=== PATIENT | male | born 1950 | race Two or more races ===

== ENCOUNTER 2017-10-14 13:37 | Inpatient (IN) | payer MEDICARE, OTHER ==
[~2017-10-14] VITALS: Ht 167.6 cm; Wt 87.1 kg
[2017-10-14] VITALS (12 sets, daily range): BP systolic 99–151; BP diastolic 68–98
[~2017-10-14 13:37] MED LIST: ADVAIR 100-501 EACH INH; AMLODIPINE-BEN1 EAC1 ORAL; CYMBALTA60 MG ORAL; DILTIAZEM 24HR180 MG PO; DULERA 200 MCG/13 GM IH; LIPITOR20 MG ORAL; LISINOPRIL20 MG ORAL; PLAVIX75 MG ORAL; SIMVASTATIN40 MG ORAL; SINGULAIR10 MG ORAL; SYMBICORT 1601 PUFFS INH; TRAMADOL HCL50 MG ORAL; UNOBMED; XARELTO10 MG ORAL
--- NOTE | 2017-10-14 14:15 | History & Physical ---
History and Physical History & Physicial Vital Signs -Extended Height: 66 inches Weight: 204 pounds Temperature: 98.6 degrees F ( oral) Pulse rate: 115 /min Pulse rhythm: irregular Respirations: 13 /min O2 Sat: 92% Blood Pressure: 112/68 mm Hg Calculations Body Mass Index: 33.05 Body Surface Area (m2): 2.02 History of Present Illness Hx. Source: patient Primary complaint: Patient is here for follow up and evaluation Duration: weeks Trend of sx: not im proved Fever: none Treatment: see med list Trend of Tx: same Additional HPI: 67 year old male patient presents today for follow up and xolair injection. The patient states he is severely swollen throughout his body. He was given Flomax by Dr. Whitten but notes some improvement. He is also complaining of severe shortness of breath, wheezing and coughing. He notes minimal improvement overall after taking the solumedrol IV at home. he notes worsening swelling overall in the legs. he notes palpitations. patient seen in the office and noted to have atrial flutter not rate controlled. no fevers at present Active Medications (reviewed today): TESSALON PERLES 100 MG ORAL CAPSULE (BENZONATATE) 1 by mouth 3 times a day as needed for cough ALBUTEROL SULFATE (2.5 MG/3ML) 0.083% INHALATION NEBULIZATION SOLUTION ( ALBUTEROL SULFATE) BID PROMETHAZINE-DM 6.25-15 MG/5ML ORAL SYRUP (PROMETHAZINE-DM) 15cc q6 PRN TYLENOL WITH CODEINE #3 300-30 MG ORAL TABLET (ACETAMINOPHEN-CODEINE) 1 PO Q6 hrs PRN VITAMIN D3 5000 UNIT ORAL CAPSULE (CHOLECALCIFEROL) Take one tablet daily EPIPEN 2-LUIS ENRIQUE 0.3 MG/0.3ML INJECTION SOLUTION AUTO-INJECTOR (EPINEPHRINE) 1 2 pack to carry 1 2pack for home 1 2 pack for school/work XOLAIR 150 MG SUBCUTANEOUS SOLUTION RECONSTITUTED (OMALIZUMAB) inject 300mg every 2 weeks LEVALBUTEROL HCL 0.63 MG/3ML INHALATION NEBULIZATION SOLUTION (LEVALBUTEROL HCL ) tid prn DILTIAZEM HCL ER COATED BEADS 180 MG ORAL CAPSULE EXTENDED RELEASE 24 HOUR ( DILTIAZEM HCL COATED BEADS) 1 tab po qd TRAMADOL HCL 50 MG ORAL TABLET (TRAMADOL HCL) 1 tab po qd DULOXETINE HCL 60 MG ORAL CAPSULE DELAYED RELEASE PARTICLES (DULOXETINE HCL) 1 cap po qd DULERA 200-5 MCG/ACT INHALATION AEROSOL (MOMETASONE FURO-FORMOTEROL FUM) 2 puffs bid VENTOLIN HFA 108 (90 Base) MCG/ACT INHALATION AEROSOL SOLUTION (ALBUTEROL SULFATE) inhale 2 puffs every 4 to 6 hours as needed ZITHROMAX 250 MG ORAL TABLET (AZITHROMYCIN) 2 by mouth now, then 1 by mouth every day times 4 additional days MEDROL 4 MG ORAL TABLET THERAPY PACK (METHYLPREDNISOLONE) use as directed Current Allergies (reviewed today): No known allergies No Known Drug Allergies Past History Past Medical History (reviewed - no changes required): Hypercholesterolemia Hypertension osteoarthritis asthma obstructive sleep apnea (not compliant- CPAP removed) abnormal CT scan 12/2015 ER due to Atrial fibrillation/flutter Surgical History (reviewed - no changes required): right palm surgery as a child vericose vein left leg 03.03.2016 vericose vein right leg bronchoscopy Right knee replacement 2017 Family History (reviewed - no changes required): Both parents , health history unknown sister- Hypertension, heart disease Social History (reviewed - no changes required): single; 3 children; lives with partner; was born in [place] Risk Factors: Smoked Tobacco Use: Current every day smoker Cigarettes: Yes -- 1-2 cigarettes a day pack(s) per day, Year started: 1968 Years smoked: 40 Caffeine use: <1 drinks per day Alcohol use: no Family History Risk Factors: Family History of [place] in females < 65 years old: yes Review of Systems Respiratory: SEE HPI Musculoskeletal: SEE HPI Physical Exam General Appearance: well nourished, well hydrated, no acute distress Respiratory Respiratory Effort: no intercostal retractions or use of accessory muscles Palpation: normal fremitus Auscultation: scattered wheeze with reduced air entry Cardiovascular Palpation: no thrill or palpable murmurs, no displacement of PMI Auscultation: S1, S2, no murmur, rub, or gallop tachy RR Peripheral Circulation: no cyanosis, clubbing, significant edema legs Musculoskeletal Gait and Station: able to ambulate uses crutch Problems Added: Edema (ICD-782.3) (EOS07-D08.9) Deep venous thrombophlebitis (ICD-453.40) (LXT01-D17.409) Cardiomyopathy (ICD-425.4) (PMC92-R71.9) Asthma (ICD-493.90) (QCE78-M98.909) Sleep apnea, obstructive (ICD-327.23) (IRN31-W52.33) Shortness of breath (ICD-786.05) (FXF02-F42.02) WHEEZING (ICD-786.07) (PWZ40-Z94.2) [Lab Results Review] Assessment Status of Existing Problems: Assessed Asthma as comment only - Assessed Sleep apnea, obstructive as comment only - Assessed Shortness of breath as comment only - Assessed WHEEZING as comment only - New Problems: Dx of Cardiomyopathy (ICD-425.4) EF 40% Onset: 10/14/2017 Dx of Deep venous thrombophlebitis (ICD-453.40) ruleD out Onset: 10/14/2017 Dx of Edema (ICD-782.3) Onset: days Plan Additional Plan Comments: ADMIT ECHO AND VENOUS US NOTABLE FOR REDUCED EF OF 45% EVALUATE FOR CHF, CARDIOMYOPATHY AND DVT OBTAIN CXR WOULD NEED LASIX DIURESIS AND CARDIAC EVALUATION RATE CONTROL REBA LOPEZ Oct 14, 2017 14:15
[2017-10-14] MEDS ORDERED: Milk of Magnesia 30ml Ud ORAL PRN (16:00)
[2017-10-14] MEDS ORDERED: Albuterol ud Inhalation HHN PRN (16:00)
[2017-10-14] MEDS ORDERED: Zolpidem 5mg tab ORAL PRN (16:00)
[2017-10-14 17:34] LABS: HEMATOCRIT 50.9 % (42.0-52.0); HEMOGLOBIN 16.6 G/DL (14.2-18.0); MEAN CORPUSCULAR VOLUME 94 FL (80-99); PLATELET COUNT 190 K/UL (150-450); RED BLOOD COUNT 5.39 M/UL (4.70-6.10); RED CELL DISTRIBUTION WIDTH 14.5 % (11.6-14.8); WHITE BLOOD COUNT 18.2 K/UL (4.8-10.8)
[2017-10-14 17:44] LABS: ANION GAP 2 mmol/L (5-15); BLOOD UREA NITROGEN 23 mg/dL (7-18); CALCIUM 8.3 MG/DL (8.5-10.1); CARBON DIOXIDE 38 MMOL/L (21-32); CHLORIDE 100 MMOL/L (98-107); POTASSIUM 3.4 MMOL/L (3.5-5.1); SODIUM 140 MMOL/L (136-145)
[2017-10-14] MEDS ORDERED: Amiodarone 900 MG in D5W 500ml 482 ML IV SCH (20:00)
[2017-10-14] MEDS: Advair 250/50 Inhaler - 14 dose INH SCH (20:09)
[2017-10-14] MEDS ORDERED: Heparin 5000 units/ml inj IV ONE (21:00)
[2017-10-14] MEDS ORDERED: Amiodarone 200mg tab ORAL SCH (21:00)
[2017-10-14] MEDS ORDERED: Heparin 5000 units/ml inj SUBQ SCH (21:00)
[2017-10-14 21:24] LABS: HEMATOCRIT 52.2 % (42.0-52.0); HEMOGLOBIN 17.2 G/DL (14.2-18.0); MEAN CORPUSCULAR VOLUME 94 FL (80-99); PLATELET COUNT 210 K/UL (150-450); RED BLOOD COUNT 5.57 M/UL (4.70-6.10); RED CELL DISTRIBUTION WIDTH 14.3 % (11.6-14.8); WHITE BLOOD COUNT 18.7 K/UL (4.8-10.8)
[2017-10-14 21:37] LABS: INR 1.1 (0.9-1.1)
[2017-10-14] MEDS ORDERED: Heparin 25,000u/D5W 500ml 500 ML IV SCH (22:00)
[2017-10-14] MEDS: Solu-MEDROL 125mg Inj IVP SCH (22:14)
[2017-10-15] VITALS (48 sets, daily range): BP systolic 75–167; BP diastolic 41–108
--- NOTE | 2017-10-15 02:00 | Consultation ---
DATE OF CONSULTATION: 10/14/2017 This is being done as coverage for Dr. West. CONSULTING PHYSICIAN: Priscilla Horn M.D. REQUESTING PHYSICIAN: Devang Larson M.D. REASON FOR CONSULT: Atrial fibrillation with rapid ventricular rates. HISTORY OF PRESENT ILLNESS: History is obtained from the old chart, treating providers, and through a lopper as the patient is Malay speaking. The patient is a 67-year-old man with a history of COPD, hypertension, and paroxysmal atrial fibrillation. He reported intermittent palpitations for about one month, a nonproductive cough, and progressively worsening dyspnea over about two weeks. He also noted peripheral edema. He presented to Dr. Larson's office where he was noted to be in atrial fibrillation with rapid ventricular rate. He was transferred to the emergency room and is admitted for further treatment. His previous history is significant for hospitalization in 2015. At that time, his past history is significant for hospitalization in December 2015. At that time, he was admitted with atrial fibrillation with rapid ventricular rates. His rhythm converted spontaneously after he received intravenous Cardizem. He had an echo at that time showing normal left ventricular systolic function. Stress nuclear showed a fixed apical perfusion defect and an ejection fraction of 37% by (question accuracy in the setting of atrial fibrillation). PAST MEDICAL HISTORY: As noted above, history of COPD/asthma, also history of osteoarthritis, obstructive sleep apnea, hyperlipidemia, and hypertension. PAST SURGICAL HISTORY: Status post right knee replacement in 2016. MEDICATIONS: Cymbalta 60 mg daily, diltiazem 180 mg daily (scheduled to be started on 10/15/2017), subcutaneous heparin 5000 units every 12 hours, Solu-Medrol 60 mg IV q.12 h., Protonix 40 mg p.o. q.12 h., amiodarone infusion, Lasix 20 mg IV b.i.d., Tylenol p.r.n., Ambien p.r.n., and albuterol p.r.n.. ALLERGIES: No known drug allergies. SOCIAL HISTORY: The patient has a history of tobacco use, previous heavy use, currently a few cigarettes per day. Alcohol, none. Drugs, none. PHYSICAL EXAMINATION: VITAL SIGNS: Blood pressure is 124/98, pulse 135 and irregular, respirations 26, afebrile. GENERAL: Alert, well-developed, male, in no acute distress. HEENT: Normocephalic and atraumatic. Pupils are equal, round, and reactive to light. Sclerae anicteric. Oral mucosa are moist. NECK: Supple. There is no jugular venous distention. LUNGS: Decreased breath sounds bilaterally. No rales or wheezes. HEART: Tachycardic. Irregular. S1 and S2 with distant heart sounds. No murmurs or S3. ABDOMEN: Soft, nontender. No palpable mass. EXTREMITIES: A 1+ pedal and ankle edema bilaterally. SKIN: No rashes or lesions. NEUROLOGIC: No gross focal motor deficits. LABORATORY AND DIAGNOSTIC DATA: Hemoglobin 16.6, white blood count 02715, and platelets 190,000. Potassium 3.4, BUN 23, and creatinine 1.0. Natriuretic peptide 2403. Troponin less than 0.3. Toxicology screen negative. EKG shows atrial fibrillation with ventricular rate of 131 beats per minute, axis 0 degrees, no ST-segment changes, and nonspecific T-wave changes. Chest x-ray shows left lung volume loss and basilar atelectasis. ASSESSMENT AND RECOMMENDATIONS: The patient is a 67-year-old man with a history of hypertension, chronic obstructive pulmonary disease, current tobacco use, and paroxysmal atrial fibrillation, also possible coronary artery disease (given the results of previous stress nuclear study.) He is admitted now with a history of increasing shortness of breath and peripheral edema and recent onset of atrial fibrillation with rapid ventricular rate. He has been started on amiodarone. Given his Chads-Vasc score of 2, we would start intravenous anticoagulation with heparin of 2. I would recommend anticoagulation for stroke prevention. We will start Cardizem for rate control and continue amiodarone. We will obtain echo and venous duplex studies. We will check serial troponin levels and EKGs to rule out acute coronary syndrome, though clinical history does not strongly suggest this diagnosis. Further recommendations will be made based on the patient's clinical course and results of above testing. Priscilla Malone M.D. DR: Niko JOB#: [id number] CC:
[2017-10-15 05:40] LABS: HEMATOCRIT 51.6 % (42.0-52.0); HEMOGLOBIN 17.3 G/DL (14.2-18.0); MEAN CORPUSCULAR VOLUME 95 FL (80-99); PLATELET COUNT 202 K/UL (150-450); RED CELL DISTRIBUTION WIDTH 14.9 % (11.6-14.8); WHITE BLOOD COUNT 16.9 K/UL (4.8-10.8)
[2017-10-15 05:45] LABS: ANION GAP 2 mmol/L (5-15); BLOOD UREA NITROGEN 23 mg/dL (7-18); CALCIUM 8.4 MG/DL (8.5-10.1); CARBON DIOXIDE 38 MMOL/L (21-32); CHLORIDE 98 MMOL/L (98-107); CREATININE 1.2 MG/DL (0.55-1.30); POTASSIUM 3.8 MMOL/L (3.5-5.1); SODIUM 138 MMOL/L (136-145)
[2017-10-15] MEDS: Heparin 25,000u/D5W 500ml 500 ML IV SCH ×3 (06:46→16:23)
[2017-10-15] MEDS ORDERED: Heparin 5000 units/ml inj IV ONE (07:00)
[2017-10-15] MEDS: DULoxetine 30mg cap ORAL SCH (08:26)
[2017-10-15] MEDS: Solu-MEDROL 125mg Inj IVP SCH ×2 (08:26→20:45)
--- NOTE | 2017-10-15 08:46 | Critical Care Progress Note ---
Assessment/Plan Assessment/Plan atrial fibrillation with RVR pulmonary edema Asthma respiratory distress hypoxemia leg edema PLAN amio drip cardizem respiratory care IV steroids oxygen medications/laboratory data/nursing notes/ICU care reviewed in detail note reviewed and edited care discussed with RN and RT ICU time spent 38 minutes Critical Care - Subjective Interval Events: transferred to ICU rapid afib and fluid overload shortness of breath oxygen ROS Limited/Unobtainable: Yes Condition: critical EKG Rhythm: Atrial Fibrillation I&O: Intake and Output 10/14/17 10/15/17 19:00 07:00 Intake Total 590.895 ml Output Total 1600 ml Balance -1009.105 ml Intake Oral 310 ml IV Total 280.895 ml Output Urine Total 1600 ml Critical Care - Objective Last 24 Hour Vital Signs Date Time Temp Pulse Resp B/P (MAP) Pulse Ox O2 Delivery O2 Flow Rate FiO2 10/15/17 08:00 98.2 123 18 92/80 95 Nasal Cannula 2.0 98.2 10/15/17 07:30 120 16 107/64 94 Nasal Cannula 2.0 10/15/17 07:00 90 16 155/75 96 Nasal Cannula 2.0 10/15/17 06:30 122 16 117/86 96 Nasal Cannula 2.0 10/15/17 06:00 117 16 101/86 96 Nasal Cannula 2.0 10/15/17 05:30 112 25 132/76 97 Nasal Cannula 2.0 10/15/17 05:00 113 25 132/76 97 Nasal Cannula 2.0 10/15/17 04:30 125 27 154/87 95 Nasal Cannula 2.0 10/15/17 04:00 98.0 118 27 163/85 96 Nasal Cannula 2.0 98.0 10/15/17 04:00 98 10/15/17 03:30 110 32 167/106 96 Nasal Cannula 2.0 10/15/17 03:00 107 25 137/89 95 Nasal Cannula 2.0 10/15/17 02:30 115 36 151/108 96 Nasal Cannula 2.0 10/15/17 02:00 93 36 139/87 96 Nasal Cannula 2.0 10/15/17 01:30 118 36 125/107 96 Nasal Cannula 2.0 10/15/17 01:00 119 24 144/93 96 Nasal Cannula 2.0 10/15/17 00:30 98.3 107 19 158/67 98 Nasal Cannula 2.0 98.3 10/15/17 00:00 140 19 167/98 98 Nasal Cannula 2.0 10/15/17 00:00 126 10/14/17 23:30 135 19 137/75 98 Nasal Cannula 2.0 10/14/17 23:00 135 19 137/75 98 Nasal Cannula 2.0 10/14/17 22:30 138 19 117/88 98 Nasal Cannula 2.0 10/14/17 22:13 156 100/86 10/14/17 22:00 151 20 99/86 96 Nasal Cannula 2.0 10/14/17 21:30 137 22 118/82 97 Nasal Cannula 2.0 10/14/17 21:00 142 24 142/95 96 Nasal Cannula 2.0 10/14/17 20:30 139 23 126/88 97 Nasal Cannula 2.0 10/14/17 20:00 133 10/14/17 20:00 136 24 126/68 96 Nasal Cannula 2.0 10/14/17 19:30 97 Nasal Cannula 2.0 10/14/17 19:30 Nasal Cannula 2.0 10/14/17 19:30 134 26 126/77 97 Nasal Cannula 2.0 10/14/17 19:00 98.2 132 26 151/80 97 Nasal Cannula 2.0 98.2 10/14/17 18:30 98.2 135 26 124/98 97 98.2 10/14/17 16:00 136 10/14/17 16:00 97.8 120 18 125/85 93 Nasal Cannula 2.0 97.8 Labs: Labs Test 10/14/17 17:00 10/14/17 21:10 10/14/17 23:25 10/15/17 04:25 White Blood Count 18.2 K/UL (4.8-10.8) 18.7 K/UL (4.8-10.8) 16.9 K/UL (4.8-10.8) Red Blood Count 5.39 M/UL (4.70-6.10) 5.57 M/UL (4.70-6.10) 5.40 M/UL (4.70-6.10) Hemoglobin 16.6 G/DL (14.2-18.0) 17.2 G/DL (14.2-18.0) 17.3 G/DL (14.2-18.0) Hematocrit 50.9 % (42.0-52.0) 52.2 % (42.0-52.0) 51.6 % (42.0-52.0) Mean Corpuscular Volume 94 FL (80-99) 94 FL (80-99) 95 FL (80-99) Mean Corpuscular Hemoglobin 30.8 PG (27.0-31.0) 30.9 PG (27.0-31.0) 32.0 PG (27.0-31.0) Mean Corpuscular Hemoglobin Concent 32.6 G/DL (32.0-36.0) 33.0 G/DL (32.0-36.0) 33.6 G/DL (32.0-36.0) Red Cell Distribution Width 14.5 % (11.6-14.8) 14.3 % (11.6-14.8) 14.9 % (11.6-14.8) Platelet Count 190 K/UL (150-450) 210 K/UL (150-450) 202 K/UL (150-450) Mean Platelet Volume 8.3 FL (6.5-10.1) 8.2 FL (6.5-10.1) 8.6 FL (6.5-10.1) Neutrophils (%) (Auto) % (45.0-75.0) % (45.0-75.0) % (45.0-75.0) Lymphocytes (%) (Auto) % (20.0-45.0) % (20.0-45.0) % (20.0-45.0) Monocytes (%) (Auto) % (1.0-10.0) % (1.0-10.0) % (1.0-10.0) Eosinophils (%) (Auto) % (0.0-3.0) % (0.0-3.0) % (0.0-3.0) Basophils (%) (Auto) % (0.0-2.0) % (0.0-2.0) % (0.0-2.0) Differential Total Cells Counted 100 100 100 Neutrophils % (Manual) 79 % (45-75) 76 % (45-75) 91 % (45-75) Lymphocytes % (Manual) 15 % (20-45) 14 % (20-45) 6 % (20-45) Monocytes % (Manual) 6 % (1-10) 5 % (1-10) 3 % (1-10) Eosinophils % (Manual) 0 % (0-3) 1 % (0-3) 0 % (0-3) Basophils % (Manual) 0 % (0-2) 0 % (0-2) 0 % (0-2) Band Neutrophils 0 % (0-8) 4 % (0-8) 0 % (0-8) Platelet Estimate Adequate Adequate Adequate Platelet Morphology Normal Normal Normal Red Blood Cell Morphology Normal Normal Sodium Level 140 MMOL/L (136-145) 138 MMOL/L (136-145) Potassium Level 3.4 MMOL/L (3.5-5.1) 3.8 MMOL/L (3.5-5.1) Chloride Level 100 MMOL/L (98-107) 98 MMOL/L (98-107) Carbon Dioxide Level 38 MMOL/L (21-32) 38 MMOL/L (21-32) Anion Gap 2 mmol/L (5-15) 2 mmol/L (5-15) Blood Urea Nitrogen 23 mg/dL (7-18) 23 mg/dL (7-18) Creatinine 1.0 MG/DL (0.55-1.30) 1.2 MG/DL (0.55-1.30) Estimat Glomerular Filtration Rate > 60 mL/min (>60) > 60 mL/min (>60) Glucose Level 79 MG/DL (74-106) 186 MG/DL (74-106) Calcium Level 8.3 MG/DL (8.5-10.1) 8.4 MG/DL (8.5-10.1) Troponin I 0.044 ng/mL (0.000-0.056) 0.049 ng/mL (0.000-0.056) 0.034 ng/mL (0.000-0.056) Pro-B-Type Natriuretic Peptide 2403 pg/mL (0-125) Prothrombin Time 11.5 SEC (9.30-11.50) 10.3 SEC (9.30-11.50) Prothromb Time International Ratio 1.1 (0.9-1.1) 1.0 (0.9-1.1) Activated Partial Thromboplast Time 27 SEC (23-33) 25 SEC (23-33) Anisocytosis 1+ Objective: WDWN NAD crackles with moderate breath sounds S1S2 iRRR without MRG NABS nontender no HSM no CC edema nonfocal REBA LOPEZ Oct 15, 2017 08:46
[2017-10-15] MEDS: Advair 250/50 Inhaler - 14 dose INH SCH ×2 (08:58→18:00)
[2017-10-15] MEDS ORDERED: dilTIAZem HCl CD 180mg cap ORAL SCH (09:00)
--- NOTE | 2017-10-15 09:13 | Diagnostic Imaging Report ---
Indication: Reason For Exam: CP Technique: XRAY Chest 1v Comparison:01/13/2016 Findings: The heart remains enlarged. There is elevation of the apparent left hemidiaphragm. Lungs are clear. No pleural fluid. Impression: Cardiac megaly. Elevated left hemidiaphragm. Or definite acute abnormality.
--- NOTE | 2017-10-15 12:07 | Cardiology Progress Note ---
Assessment/Plan Problem List: (1) Atrial fibrillation with rapid ventricular response (2) Dyspnea (3) Troponin level elevated Status: stable, unchanged Status Narrative Mr. Azevedo remains w/ AF w/ rapid ventricular rates. Appears in mild to moderate chf on exam. Troponin level mildly increased, but EKG shows no definite ischemic changes. Assessment/Plan Continue iv diltiazem (titrate ) iv amiodarone and will give one dose of digoxin today. Continue anticoagulation w/ iv heparin for CVA prevention Increase lasix to 40 mg bid for diuresis ECHO- pending to evaluate LV wall motion. Will need ischemia evaluation when stable. Subjective ROS Limited/Unobtainable: No Subjective Cardiology for Dr. West/ cardiac EP Mr. Azevedo c/o dyspnea and mild chest pain. Objective Last 24 Hour Vital Signs Date Time Temp Pulse Resp B/P (MAP) Pulse Ox O2 Delivery O2 Flow Rate FiO2 10/15/17 11:30 127 16 128/81 98 Nasal Cannula 2.0 10/15/17 11:00 102 16 118/79 98 Nasal Cannula 2.0 10/15/17 10:30 111 16 137/73 98 Nasal Cannula 2.0 10/15/17 10:00 143 16 123/66 98 Nasal Cannula 2.0 10/15/17 09:30 127 16 118/82 98 Nasal Cannula 2.0 10/15/17 09:01 112 20 95 Nasal Cannula 2.0 28 10/15/17 09:00 149 16 128/96 94 Nasal Cannula 2.0 10/15/17 09:00 112 21 94 Nasal Cannula 2.0 28 10/15/17 08:59 Nasal Cannula 2.0 28 10/15/17 08:30 117 16 115/84 94 Nasal Cannula 2.0 10/15/17 08:00 124 10/15/17 08:00 98.2 123 18 92/80 95 Nasal Cannula 2.0 98.2 10/15/17 07:30 120 16 107/64 94 Nasal Cannula 2.0 10/15/17 07:00 90 16 155/75 96 Nasal Cannula 2.0 10/15/17 06:30 122 16 117/86 96 Nasal Cannula 2.0 10/15/17 06:00 117 16 101/86 96 Nasal Cannula 2.0 10/15/17 05:30 112 25 132/76 97 Nasal Cannula 2.0 10/15/17 05:00 113 25 132/76 97 Nasal Cannula 2.0 10/15/17 04:30 125 27 154/87 95 Nasal Cannula 2.0 10/15/17 04:00 98.0 118 27 163/85 96 Nasal Cannula 2.0 98.0 10/15/17 04:00 98 10/15/17 03:30 110 32 167/106 96 Nasal Cannula 2.0 10/15/17 03:00 107 25 137/89 95 Nasal Cannula 2.0 10/15/17 02:30 115 36 151/108 96 Nasal Cannula 2.0 10/15/17 02:00 93 36 139/87 96 Nasal Cannula 2.0 10/15/17 01:30 118 36 125/107 96 Nasal Cannula 2.0 10/15/17 01:00 119 24 144/93 96 Nasal Cannula 2.0 10/15/17 00:30 98.3 107 19 158/67 98 Nasal Cannula 2.0 98.3 10/15/17 00:00 140 19 167/98 98 Nasal Cannula 2.0 10/15/17 00:00 126 10/14/17 23:30 135 19 137/75 98 Nasal Cannula 2.0 10/14/17 23:00 135 19 137/75 98 Nasal Cannula 2.0 10/14/17 22:30 138 19 117/88 98 Nasal Cannula 2.0 10/14/17 22:13 156 100/86 10/14/17 22:00 151 20 99/86 96 Nasal Cannula 2.0 10/14/17 21:30 137 22 118/82 97 Nasal Cannula 2.0 10/14/17 21:00 142 24 142/95 96 Nasal Cannula 2.0 10/14/17 20:30 139 23 126/88 97 Nasal Cannula 2.0 10/14/17 20:00 133 10/14/17 20:00 136 24 126/68 96 Nasal Cannula 2.0 10/14/17 19:30 97 Nasal Cannula 2.0 10/14/17 19:30 Nasal Cannula 2.0 10/14/17 19:30 134 26 126/77 97 Nasal Cannula 2.0 10/14/17 19:00 98.2 132 26 151/80 97 Nasal Cannula 2.0 98.2 10/14/17 18:30 98.2 135 26 124/98 97 98.2 10/14/17 16:00 136 10/14/17 16:00 97.8 120 18 125/85 93 Nasal Cannula 2.0 97.8 General Appearance: WD/WN, no apparent distress, alert EENT: PERRL/EOMI Neck: supple, no JVD Rhythm: Afib Cardiovascular: no gallop/murmur, tachycardia, irregularly irregular Respiratory/Chest: other - bilateral lower field rales. Dec BS L base Abdomen: normal bowel sounds, non tender Extremities: moderate edema - 2+ pedal and ankle edema bilat Neurologic: no motor/sensory deficits Intake and Output 10/14/17 10/15/17 19:00 07:00 Intake Total 638.710 ml Output Total 1600 ml Balance -961.290 ml Intake Oral 310 ml IV Total 328.710 ml Output Urine Total 1600 ml Laboratory Tests Test 10/14/17 17:00 10/14/17 21:10 10/14/17 23:25 10/15/17 04:25 White Blood Count 18.2 K/UL (4.8-10.8) H 18.7 K/UL (4.8-10.8) H 16.9 K/UL (4.8-10.8) H Red Blood Count 5.39 M/UL (4.70-6.10) 5.57 M/UL (4.70-6.10) 5.40 M/UL (4.70-6.10) Hemoglobin 16.6 G/DL (14.2-18.0) 17.2 G/DL (14.2-18.0) 17.3 G/DL (14.2-18.0) Hematocrit 50.9 % (42.0-52.0) 52.2 % (42.0-52.0) H 51.6 % (42.0-52.0) Mean Corpuscular Volume 94 FL (80-99) 94 FL (80-99) 95 FL (80-99) Mean Corpuscular Hemoglobin 30.8 PG (27.0-31.0) 30.9 PG (27.0-31.0) 32.0 PG (27.0-31.0) H Mean Corpuscular Hemoglobin Concent 32.6 G/DL (32.0-36.0) 33.0 G/DL (32.0-36.0) 33.6 G/DL (32.0-36.0) Red Cell Distribution Width 14.5 % (11.6-14.8) 14.3 % (11.6-14.8) 14.9 % (11.6-14.8) H Platelet Count 190 K/UL (150-450) 210 K/UL (150-450) 202 K/UL (150-450) Mean Platelet Volume 8.3 FL (6.5-10.1) 8.2 FL (6.5-10.1) 8.6 FL (6.5-10.1) Neutrophils (%) (Auto) % (45.0-75.0) % (45.0-75.0) % (45.0-75.0) Lymphocytes (%) (Auto) % (20.0-45.0) % (20.0-45.0) % (20.0-45.0) Monocytes (%) (Auto) % (1.0-10.0) % (1.0-10.0) % (1.0-10.0) Eosinophils (%) (Auto) % (0.0-3.0) % (0.0-3.0) % (0.0-3.0) Basophils (%) (Auto) % (0.0-2.0) % (0.0-2.0) % (0.0-2.0) Differential Total Cells Counted 100 100 100 Neutrophils % (Manual) 79 % (45-75) H 76 % (45-75) H 91 % (45-75) H Lymphocytes % (Manual) 15 % (20-45) L 14 % (20-45) L 6 % (20-45) L Monocytes % (Manual) 6 % (1-10) 5 % (1-10) 3 % (1-10) Eosinophils % (Manual) 0 % (0-3) 1 % (0-3) 0 % (0-3) Basophils % (Manual) 0 % (0-2) 0 % (0-2) 0 % (0-2) Band Neutrophils 0 % (0-8) 4 % (0-8) 0 % (0-8) Platelet Estimate Adequate Adequate Adequate Platelet Morphology Normal Normal Normal Red Blood Cell Morphology Normal Normal Sodium Level 140 MMOL/L (136-145) 138 MMOL/L (136-145) Potassium Level 3.4 MMOL/L (3.5-5.1) L 3.8 MMOL/L (3.5-5.1) Chloride Level 100 MMOL/L (98-107) 98 MMOL/L (98-107) Carbon Dioxide Level 38 MMOL/L (21-32) H 38 MMOL/L (21-32) H Anion Gap 2 mmol/L (5-15) L 2 mmol/L (5-15) L Blood Urea Nitrogen 23 mg/dL (7-18) H 23 mg/dL (7-18) H Creatinine 1.0 MG/DL (0.55-1.30) 1.2 MG/DL (0.55-1.30) Estimat Glomerular Filtration Rate > 60 mL/min (>60) > 60 mL/min (>60) Glucose Level 79 MG/DL (74-106) 186 MG/DL (74-106) #H Calcium Level 8.3 MG/DL (8.5-10.1) L 8.4 MG/DL (8.5-10.1) L Troponin I 0.044 ng/mL (0.000-0.056) 0.049 ng/mL (0.000-0.056) 0.034 ng/mL (0.000-0.056) Pro-B-Type Natriuretic Peptide 2403 pg/mL (0-125) H Prothrombin Time 11.5 SEC (9.30-11.50) 10.3 SEC (9.30-11.50) Prothromb Time International Ratio 1.1 (0.9-1.1) 1.0 (0.9-1.1) Activated Partial Thromboplast Time 27 SEC (23-33) 25 SEC (23-33) Anisocytosis 1+ FUENTES PAGAN Oct 15, 2017 12:07
[2017-10-15] MEDS ORDERED: Digoxin 0.5mg/2ml Inj IVP ONE (12:10)
[2017-10-15 13:20] LABS: INR 1.1 (0.9-1.1)
[2017-10-15] MEDS ORDERED: NS 275ml ONE (15:58)
[2017-10-16] VITALS (37 sets, daily range): BP systolic 120–173; BP diastolic 68–112
[2017-10-16] MEDS ORDERED: Heparin 25,000u/D5W 500ml 500 ML IV SCH ×3 (00:30→08:30)
--- NOTE | 2017-10-16 07:48 | Critical Care Progress Note ---
Assessment/Plan Assessment/Plan atrial fibrillation with RVR pulmonary edema Asthma respiratory distress hypoxemia leg edema PLAN amiodarone per EP cardizem respiratory care IV steroids taper oxygen taper transfer out of ICU if ok with cards medications/laboratory data/nursing notes/ICU care reviewed in detail note reviewed and edited care discussed with RN and RT ICU time spent 38 minutes Critical Care - Subjective Interval Events: hemodynamics improved no distress no sob edema better Condition: critical EKG Rhythm: Atrial Fibrillation I&O: Intake and Output 10/15/17 10/16/17 19:00 07:00 Intake Total 1785.675 ml 458.925 ml Output Total 1350 ml 1000 ml Balance 435.675 ml -541.075 ml Intake Oral 1220 ml 60 ml IV Total 565.675 ml 398.925 ml Output Urine Total 1350 ml 1000 ml # Voids 2 # Bowel Movements 2 Critical Care - Objective Last 24 Hour Vital Signs Date Time Temp Pulse Resp B/P (MAP) Pulse Ox O2 Delivery O2 Flow Rate FiO2 10/16/17 06:30 90 18 154/77 95 Nasal Cannula 2.0 10/16/17 06:00 92 18 163/83 95 Nasal Cannula 2.0 10/16/17 05:30 87 19 138/83 95 Nasal Cannula 2.0 10/16/17 05:00 82 13 137/81 95 Nasal Cannula 2.0 10/16/17 04:30 81 16 140/78 95 Nasal Cannula 2.0 10/16/17 04:00 98.0 84 14 125/85 95 Nasal Cannula 2.0 98.0 10/16/17 04:00 84 10/16/17 03:30 87 15 122/76 96 Nasal Cannula 2.0 10/16/17 03:00 87 19 144/75 95 Nasal Cannula 2.0 10/16/17 02:30 91 16 131/81 95 Nasal Cannula 2.0 10/16/17 02:00 91 17 147/80 95 Nasal Cannula 2.0 10/16/17 01:30 102 21 151/103 93 Nasal Cannula 2.0 10/16/17 01:00 87 16 141/77 94 Nasal Cannula 2.0 10/16/17 00:30 93 19 157/86 94 Nasal Cannula 2.0 10/16/17 00:00 89 10/16/17 00:00 98.4 89 18 157/68 94 Nasal Cannula 2.0 98.4 10/15/17 23:30 86 18 148/76 95 Nasal Cannula 2.0 10/15/17 23:00 90 21 158/99 94 Nasal Cannula 2.0 10/15/17 22:30 93 18 143/92 94 Nasal Cannula 2.0 10/15/17 22:00 86 21 120/108 95 Nasal Cannula 2.0 10/15/17 21:30 90 22 142/96 95 Nasal Cannula 2.0 10/15/17 21:00 87 24 115/82 94 Nasal Cannula 2.0 10/15/17 20:42 88 10/15/17 20:30 92 22 138/72 96 Nasal Cannula 2.0 10/15/17 20:00 96 10/15/17 20:00 Nasal Cannula 2.0 28 10/15/17 20:00 94 23 140/65 95 Nasal Cannula 2.0 10/15/17 19:30 Nasal Cannula 2.0 28 10/15/17 19:30 98.4 93 23 133/71 95 Nasal Cannula 2.0 98.4 10/15/17 19:30 95 Nasal Cannula 2.0 28 10/15/17 19:30 Nasal Cannula 2.0 28 10/15/17 19:00 104 24 130/70 95 Nasal Cannula 2.0 10/15/17 18:30 99 24 116/78 95 Nasal Cannula 2.0 10/15/17 18:00 99 24 142/59 95 Nasal Cannula 2.0 10/15/17 17:30 95 24 122/75 95 Nasal Cannula 2.0 10/15/17 17:00 98 22 75/41 98 Nasal Cannula 2.0 10/15/17 16:30 93 18 109/73 98 Nasal Cannula 2.0 10/15/17 16:00 95 10/15/17 16:00 98.1 102 18 148/79 95 Nasal Cannula 2.0 98.1 10/15/17 15:30 103 18 117/84 95 Nasal Cannula 2.0 10/15/17 15:00 107 18 118/69 95 Nasal Cannula 2.0 10/15/17 14:30 107 16 139/90 97 Nasal Cannula 2.0 10/15/17 14:00 84 16 121/86 95 Nasal Cannula 2.0 10/15/17 13:30 102 16 125/72 95 Nasal Cannula 2.0 10/15/17 13:00 108 16 99/69 98 Nasal Cannula 2.0 10/15/17 12:30 108 16 128/81 98 Nasal Cannula 2.0 10/15/17 12:27 129 127/80 10/15/17 12:15 139 10/15/17 12:00 98.0 121 18 112/82 95 Nasal Cannula 2.0 98.0 10/15/17 12:00 129 10/15/17 11:30 127 16 128/81 98 Nasal Cannula 2.0 10/15/17 11:00 102 16 118/79 98 Nasal Cannula 2.0 10/15/17 10:30 111 16 137/73 98 Nasal Cannula 2.0 10/15/17 10:00 143 16 123/66 98 Nasal Cannula 2.0 10/15/17 09:30 127 16 118/82 98 Nasal Cannula 2.0 10/15/17 09:01 112 20 95 Nasal Cannula 2.0 28 10/15/17 09:00 149 16 128/96 94 Nasal Cannula 2.0 10/15/17 09:00 112 21 94 Nasal Cannula 2.0 28 10/15/17 08:59 Nasal Cannula 2.0 28 10/15/17 08:30 117 16 115/84 94 Nasal Cannula 2.0 10/15/17 08:00 124 10/15/17 08:00 98.2 123 18 92/80 95 Nasal Cannula 2.0 98.2 Labs: Labs Test 10/14/17 17:00 10/14/17 21:10 10/14/17 23:25 10/15/17 04:25 White Blood Count 18.2 K/UL (4.8-10.8) 18.7 K/UL (4.8-10.8) 16.9 K/UL (4.8-10.8) Red Blood Count 5.39 M/UL (4.70-6.10) 5.57 M/UL (4.70-6.10) 5.40 M/UL (4.70-6.10) Hemoglobin 16.6 G/DL (14.2-18.0) 17.2 G/DL (14.2-18.0) 17.3 G/DL (14.2-18.0) Hematocrit 50.9 % (42.0-52.0) 52.2 % (42.0-52.0) 51.6 % (42.0-52.0) Mean Corpuscular Volume 94 FL (80-99) 94 FL (80-99) 95 FL (80-99) Mean Corpuscular Hemoglobin 30.8 PG (27.0-31.0) 30.9 PG (27.0-31.0) 32.0 PG (27.0-31.0) Mean Corpuscular Hemoglobin Concent 32.6 G/DL (32.0-36.0) 33.0 G/DL (32.0-36.0) 33.6 G/DL (32.0-36.0) Red Cell Distribution Width 14.5 % (11.6-14.8) 14.3 % (11.6-14.8) 14.9 % (11.6-14.8) Platelet Count 190 K/UL (150-450) 210 K/UL (150-450) 202 K/UL (150-450) Mean Platelet Volume 8.3 FL (6.5-10.1) 8.2 FL (6.5-10.1) 8.6 FL (6.5-10.1) Neutrophils (%) (Auto) % (45.0-75.0) % (45.0-75.0) % (45.0-75.0) Lymphocytes (%) (Auto) % (20.0-45.0) % (20.0-45.0) % (20.0-45.0) Monocytes (%) (Auto) % (1.0-10.0) % (1.0-10.0) % (1.0-10.0) Eosinophils (%) (Auto) % (0.0-3.0) % (0.0-3.0) % (0.0-3.0) Basophils (%) (Auto) % (0.0-2.0) % (0.0-2.0) % (0.0-2.0) Differential Total Cells Counted 100 100 100 Neutrophils % (Manual) 79 % (45-75) 76 % (45-75) 91 % (45-75) Lymphocytes % (Manual) 15 % (20-45) 14 % (20-45) 6 % (20-45) Monocytes % (Manual) 6 % (1-10) 5 % (1-10) 3 % (1-10) Eosinophils % (Manual) 0 % (0-3) 1 % (0-3) 0 % (0-3) Basophils % (Manual) 0 % (0-2) 0 % (0-2) 0 % (0-2) Band Neutrophils 0 % (0-8) 4 % (0-8) 0 % (0-8) Platelet Estimate Adequate Adequate Adequate Platelet Morphology Normal Normal Normal Red Blood Cell Morphology Normal Normal Sodium Level 140 MMOL/L (136-145) 138 MMOL/L (136-145) Potassium Level 3.4 MMOL/L (3.5-5.1) 3.8 MMOL/L (3.5-5.1) Chloride Level 100 MMOL/L (98-107) 98 MMOL/L (98-107) Carbon Dioxide Level 38 MMOL/L (21-32) 38 MMOL/L (21-32) Anion Gap 2 mmol/L (5-15) 2 mmol/L (5-15) Blood Urea Nitrogen 23 mg/dL (7-18) 23 mg/dL (7-18) Creatinine 1.0 MG/DL (0.55-1.30) 1.2 MG/DL (0.55-1.30) Estimat Glomerular Filtration Rate > 60 mL/min (>60) > 60 mL/min (>60) Glucose Level 79 MG/DL (74-106) 186 MG/DL (74-106) Calcium Level 8.3 MG/DL (8.5-10.1) 8.4 MG/DL (8.5-10.1) Troponin I 0.044 ng/mL (0.000-0.056) 0.049 ng/mL (0.000-0.056) 0.034 ng/mL (0.000-0.056) Pro-B-Type Natriuretic Peptide 2403 pg/mL (0-125) Prothrombin Time 11.5 SEC (9.30-11.50) 10.3 SEC (9.30-11.50) Prothromb Time International Ratio 1.1 (0.9-1.1) 1.0 (0.9-1.1) Activated Partial Thromboplast Time 27 SEC (23-33) 25 SEC (23-33) Anisocytosis 1+ Test 10/15/17 12:38 10/15/17 22:12 10/16/17 06:30 Prothrombin Time 11.7 SEC (9.30-11.50) Prothromb Time International Ratio 1.1 (0.9-1.1) Activated Partial Thromboplast Time > 150 SEC (23-33) > 150 SEC (23-33) > 150 SEC (23-33) Troponin I 0.013 ng/mL (0.000-0.056) Pro-B-Type Natriuretic Peptide 1597 pg/mL (0-125) Objective: WDWN NAD crackles with moderate breath sounds S1S2 iRRR without MRG NABS nontender no HSM no CC edema improved no sob alert nonfocal REBA LOPEZ Oct 16, 2017 07:48
[2017-10-16] MEDS: Advair 250/50 Inhaler - 14 dose INH SCH ×2 (07:57→19:50)
[2017-10-16] MEDS: DULoxetine 30mg cap ORAL SCH (08:38)
[2017-10-16] MEDS ORDERED: Solu-MEDROL 125mg Inj IVP SCH (09:00)
--- NOTE | 2017-10-16 09:51 | General Progress Note ---
Assessment/Plan Problem List: (1) Atrial fibrillation with rapid ventricular response ICD Codes: I48.91 - Unspecified atrial fibrillation SNOMED: 144959164920433 (2) Troponin level elevated ICD Codes: R74.8 - Abnormal levels of other serum enzymes SNOMED: 641248986, 791008707, [id number] (3) Dyspnea ICD Codes: R06.00 - Dyspnea, unspecified SNOMED: 463563064 Status: stable, progressing Assessment/Plan wean drip rate control iv steroids diuresis monitor labs Subjective ROS Limited/Unobtainable: No Constitutional: Reports: malaise, weakness HEENT: Reports: no symptoms Cardiovascular: Reports: irregular heart rate Respiratory: Reports: no symptoms Gastrointestinal/Abdominal: Reports: no symptoms Genitourinary: Reports: no symptoms Neurologic/Psychiatric: Reports: no symptoms Endocrine: Reports: no symptoms Hematologic/Lymphatic: Reports: no symptoms Allergies: Coded Allergies: No Known Allergies (Unverified , 01/13/16) All Systems: reviewed and negative except above Subjective no complaints. mild cough. remains on cardizem drip. Objective Last 24 Hour Vital Signs Date Time Temp Pulse Resp B/P (MAP) Pulse Ox O2 Delivery O2 Flow Rate FiO2 10/16/17 07:59 Nasal Cannula 2.0 28 10/16/17 07:59 95 Nasal Cannula 2.0 28 10/16/17 07:59 80 20 95 Nasal Cannula 2.0 28 10/16/17 07:57 93 18 95 Nasal Cannula 2.0 28 10/16/17 06:30 90 18 154/77 95 Nasal Cannula 2.0 10/16/17 06:00 92 18 163/83 95 Nasal Cannula 2.0 10/16/17 05:30 87 19 138/83 95 Nasal Cannula 2.0 10/16/17 05:00 82 13 137/81 95 Nasal Cannula 2.0 10/16/17 04:30 81 16 140/78 95 Nasal Cannula 2.0 10/16/17 04:00 98.0 84 14 125/85 95 Nasal Cannula 2.0 98.0 10/16/17 04:00 84 10/16/17 03:30 87 15 122/76 96 Nasal Cannula 2.0 10/16/17 03:00 87 19 144/75 95 Nasal Cannula 2.0 10/16/17 02:30 91 16 131/81 95 Nasal Cannula 2.0 2/25/18 02:00 91 17 147/80 95 Nasal Cannula 2.0 10/16/17 01:30 102 21 151/103 93 Nasal Cannula 2.0 10/16/17 01:00 87 16 141/77 94 Nasal Cannula 2.0 10/16/17 00:30 93 19 157/86 94 Nasal Cannula 2.0 10/16/17 00:00 89 10/16/17 00:00 98.4 89 18 157/68 94 Nasal Cannula 2.0 98.4 10/15/17 23:30 86 18 148/76 95 Nasal Cannula 2.0 10/15/17 23:00 90 21 158/99 94 Nasal Cannula 2.0 10/15/17 22:30 93 18 143/92 94 Nasal Cannula 2.0 10/15/17 22:00 86 21 120/108 95 Nasal Cannula 2.0 10/15/17 21:30 90 22 142/96 95 Nasal Cannula 2.0 10/15/17 21:00 87 24 115/82 94 Nasal Cannula 2.0 10/15/17 20:42 88 10/15/17 20:30 92 22 138/72 96 Nasal Cannula 2.0 10/15/17 20:00 96 10/15/17 20:00 Nasal Cannula 2.0 28 10/15/17 20:00 94 23 140/65 95 Nasal Cannula 2.0 10/15/17 19:30 Nasal Cannula 2.0 28 10/15/17 19:30 98.4 93 23 133/71 95 Nasal Cannula 2.0 98.4 10/15/17 19:30 95 Nasal Cannula 2.0 28 10/15/17 19:30 Nasal Cannula 2.0 28 10/15/17 19:00 104 24 130/70 95 Nasal Cannula 2.0 10/15/17 18:30 99 24 116/78 95 Nasal Cannula 2.0 10/15/17 18:00 99 24 142/59 95 Nasal Cannula 2.0 10/15/17 17:30 95 24 122/75 95 Nasal Cannula 2.0 10/15/17 17:00 98 22 75/41 98 Nasal Cannula 2.0 10/15/17 16:30 93 18 109/73 98 Nasal Cannula 2.0 10/15/17 16:00 95 10/15/17 16:00 98.1 102 18 148/79 95 Nasal Cannula 2.0 98.1 10/15/17 15:30 103 18 117/84 95 Nasal Cannula 2.0 10/15/17 15:00 107 18 118/69 95 Nasal Cannula 2.0 10/15/17 14:30 107 16 139/90 97 Nasal Cannula 2.0 10/15/17 14:00 84 16 121/86 95 Nasal Cannula 2.0 10/15/17 13:30 102 16 125/72 95 Nasal Cannula 2.0 10/15/17 13:00 108 16 99/69 98 Nasal Cannula 2.0 10/15/17 12:30 108 16 128/81 98 Nasal Cannula 2.0 10/15/17 12:27 129 127/80 10/15/17 12:15 139 10/15/17 12:00 98.0 121 18 112/82 95 Nasal Cannula 2.0 98.0 10/15/17 12:00 129 10/15/17 11:30 127 16 128/81 98 Nasal Cannula 2.0 10/15/17 11:00 102 16 118/79 98 Nasal Cannula 2.0 10/15/17 10:30 111 16 137/73 98 Nasal Cannula 2.0 10/15/17 10:00 143 16 123/66 98 Nasal Cannula 2.0 Intake and Output 10/15/17 10/16/17 19:00 07:00 Intake Total 1785.675 ml 458.925 ml Output Total 1350 ml 1000 ml Balance 435.675 ml -541.075 ml Intake Oral 1220 ml 60 ml IV Total 565.675 ml 398.925 ml Output Urine Total 1350 ml 1000 ml # Voids 2 # Bowel Movements 2 Laboratory Tests 10/15/17 12:38: Prothrombin Time 11.7H, Prothromb Time International Ratio 1.1, Activated Partial Thromboplast Time > 150*H, Troponin I 0.013 10/15/17 22:12: Activated Partial Thromboplast Time > 150*H 10/16/17 06:30: Activated Partial Thromboplast Time > 150*H, Pro-B-Type Natriuretic Peptide 1597H Height (Feet): 5 Height (Inches): 6.00 Weight (Pounds): 200 General Appearance: WD/WN, alert Neck: supple Cardiovascular: irregularly irregular Respiratory/Chest: chest wall non-tender, lungs clear, normal breath sounds, no respiratory distress Edema: no edema noted Arm (L), no edema noted Arm (R), no edema noted Leg (L), no edema noted Leg (R), no edema noted Pedal (L), no edema noted Pedal (R), no edema noted Generalized TRAN ABEL Oct 16, 2017 09:51
[2017-10-16] MEDS ORDERED: Digoxin 0.5mg/2ml Inj IVP ONE (12:30)
--- NOTE | 2017-10-16 12:38 | Cardiology Progress Note ---
Assessment/Plan Problem List: (1) Atrial fibrillation with rapid ventricular response (2) Dyspnea (3) Troponin level elevated Status: stable, progressing Status Narrative Mr. Azevedo remains w/ AF - ventricular rates remain elevated, but are coming under control. He is diuresing w/ iv lasix, w/ clinical improvement in chf symptoms. Troponin level mildly increased, but EKG shows no definite ischemic changes. Assessment/Plan Stop iv diltiazem and start po. Start oral amiodarone. Will also give one dose of iv digoxin for rate control in af Continue anticoagulation w/ iv heparin for CVA prevention. Start warfarin. continue lasix to 40 mg bid for diuresis ECHO- prelim w/ normal LV function, EF. Will need ischemia evaluation when stable - stress nuclear. Subjective ROS Limited/Unobtainable: No Subjective Cardiology for Dr. West/ cardiac EP Mr. Azevedo reports that dyspnea has improved. He has mild CP and no palpitations Objective Last 24 Hour Vital Signs Date Time Temp Pulse Resp B/P (MAP) Pulse Ox O2 Delivery O2 Flow Rate FiO2 10/16/17 11:28 123 149/74 10/16/17 08:00 90 10/16/17 07:59 Nasal Cannula 2.0 28 10/16/17 07:59 95 Nasal Cannula 2.0 28 10/16/17 07:59 80 20 95 Nasal Cannula 2.0 28 10/16/17 07:57 93 18 95 Nasal Cannula 2.0 28 10/16/17 06:30 90 18 154/77 95 Nasal Cannula 2.0 10/16/17 06:00 92 18 163/83 95 Nasal Cannula 2.0 10/16/17 05:30 87 19 138/83 95 Nasal Cannula 2.0 10/16/17 05:00 82 13 137/81 95 Nasal Cannula 2.0 10/16/17 04:30 81 16 140/78 95 Nasal Cannula 2.0 10/16/17 04:00 98.0 84 14 125/85 95 Nasal Cannula 2.0 98.0 10/16/17 04:00 84 10/16/17 03:30 87 15 122/76 96 Nasal Cannula 2.0 10/16/17 03:00 87 19 144/75 95 Nasal Cannula 2.0 10/16/17 02:30 91 16 131/81 95 Nasal Cannula 2.0 10/16/17 02:00 91 17 147/80 95 Nasal Cannula 2.0 10/16/17 01:30 102 21 151/103 93 Nasal Cannula 2.0 10/16/17 01:00 87 16 141/77 94 Nasal Cannula 2.0 10/16/17 00:30 93 19 157/86 94 Nasal Cannula 2.0 10/16/17 00:00 89 10/16/17 00:00 98.4 89 18 157/68 94 Nasal Cannula 2.0 98.4 10/15/17 23:30 86 18 148/76 95 Nasal Cannula 2.0 10/15/17 23:00 90 21 158/99 94 Nasal Cannula 2.0 10/15/17 22:30 93 18 143/92 94 Nasal Cannula 2.0 10/15/17 22:00 86 21 120/108 95 Nasal Cannula 2.0 10/15/17 21:30 90 22 142/96 95 Nasal Cannula 2.0 10/15/17 21:00 87 24 115/82 94 Nasal Cannula 2.0 10/15/17 20:42 88 10/15/17 20:30 92 22 138/72 96 Nasal Cannula 2.0 10/15/17 20:00 96 10/15/17 20:00 Nasal Cannula 2.0 28 10/15/17 20:00 94 23 140/65 95 Nasal Cannula 2.0 10/15/17 19:30 Nasal Cannula 2.0 28 10/15/17 19:30 98.4 93 23 133/71 95 Nasal Cannula 2.0 98.4 10/15/17 19:30 95 Nasal Cannula 2.0 28 10/15/17 19:30 Nasal Cannula 2.0 28 10/15/17 19:00 104 24 130/70 95 Nasal Cannula 2.0 10/15/17 18:30 99 24 116/78 95 Nasal Cannula 2.0 10/15/17 18:00 99 24 142/59 95 Nasal Cannula 2.0 10/15/17 17:30 95 24 122/75 95 Nasal Cannula 2.0 10/15/17 17:00 98 22 75/41 98 Nasal Cannula 2.0 10/15/17 16:30 93 18 109/73 98 Nasal Cannula 2.0 10/15/17 16:00 95 10/15/17 16:00 98.1 102 18 148/79 95 Nasal Cannula 2.0 98.1 10/15/17 15:30 103 18 117/84 95 Nasal Cannula 2.0 10/15/17 15:00 107 18 118/69 95 Nasal Cannula 2.0 10/15/17 14:30 107 16 139/90 97 Nasal Cannula 2.0 10/15/17 14:00 84 16 121/86 95 Nasal Cannula 2.0 10/15/17 13:30 102 16 125/72 95 Nasal Cannula 2.0 10/15/17 13:00 108 16 99/69 98 Nasal Cannula 2.0 General Appearance: WD/WN, no apparent distress, alert Neck: no JVD Rhythm: Afib Cardiovascular: no gallop/murmur, tachycardia, irregularly irregular Respiratory/Chest: other - min basilar rales Abdomen: non tender, soft Extremities: no swelling, other - L upper ext ecchymosis/edema Intake and Output 10/15/17 10/16/17 19:00 07:00 Intake Total 1785.675 ml 458.925 ml Output Total 1350 ml 1000 ml Balance 435.675 ml -541.075 ml Intake Oral 1220 ml 60 ml IV Total 565.675 ml 398.925 ml Output Urine Total 1350 ml 1000 ml # Voids 2 # Bowel Movements 2 Laboratory Tests Test 10/15/17 12:38 10/15/17 22:12 10/16/17 06:30 Prothrombin Time 11.7 SEC (9.30-11.50) H Prothromb Time International Ratio 1.1 (0.9-1.1) Activated Partial Thromboplast Time > 150 SEC (23-33) *H > 150 SEC (23-33) *H > 150 SEC (23-33) *H Troponin I 0.013 ng/mL (0.000-0.056) Pro-B-Type Natriuretic Peptide 1597 pg/mL (0-125) H FUENTES PAGAN Oct 16, 2017 12:38
[2017-10-16] MEDS: dilTIAZem HCl 60mg tab ORAL SCH ×3 (13:00→23:51)
[2017-10-16] MEDS: Amiodarone 200mg tab ORAL SCH ×2 (13:39→21:32)
--- NOTE | 2017-10-16 14:47 | Cardiology Report ---
APPROVED REPORT EXAM: Two-dimensional and M-mode echocardiogram with Doppler and color Doppler. INDICATION Congestive Heart Failure M-Mode DIMENSIONS IVSd1.2 (0.7-1.1cm)Left Atrium (MM)4.9 (1.6-4.0cm) LVDd4.8 (3.5-5.6cm)Aortic Root3.6 (2.0-3.7cm) PWd1.6 (0.7-1.1cm)Aortic Cusp Exc.1.3 (1.5-2.0cm) IVSs2.1 cm LVDs3.4 (2.5-4.0cm) PWs2.2 cm Technically difficult study due to poor acoustical windows and pts position. Normal left ventricular chamber size, systolic function and wall motion to extent visualized. Left ventricular ejection fraction estimated to be 50 %. Study quality precludes accurate assessment of regional wall motion. No evidence of left ventricular hypertrophy. No evidence of pericardial effusion. Moderate bi-atrial atrial enlargement. Left atrial size at upper limits of normal. Right ventricular chamber sizes is within normal limits. Focal aortic valve sclerosis with adequate cusp excursion. Thickened mitral valve leaflets with normal excursion. Mitral annulus and aortic root calcification. Pulmonic valve not well visualized. Normal tricuspid valve structure. IVC dilated at 2.8 cm and collapsing with respiration . A color flow and spectral Doppler study was performed and revealed: No aortic insufficiency. Peak aortic valve gradient of 19 mm Hg and a mean of 8 mmHg. Aortic valve area 1.7 cm2 calculated by continuity equation. Mild mitral regurgitation. Can not determine left ventricular diastolic function by mitral diastolic velocities due to atrial fibrillation. Mild tricuspid regurgitation. Tricuspid systolic velocities suggests peak right ventricular systolic pressure of 20 mmHg No Pulmonic regurgitation present.
--- NOTE | 2017-10-16 15:48 | Cardiology Report ---
APPROVED REPORT EKG Measurement Heart [id number] Atrial fibrillation Incomplete left bundle branch block Nonspecific T wave abnormality Abnormal ECG
[2017-10-16] MEDS ORDERED: Enoxaparin 100mg Inj SUBQ SCH (16:00)
[2017-10-16] MEDS ORDERED: Enoxaparin Sodium 300mg/3ml vial SUBQ SCH (17:00)
[2017-10-16 19:31] LABS: INR 1.1 (0.9-1.1)
[2017-10-16] MEDS ORDERED: Zolpidem 5mg tab ORAL PRN (21:00)
[2017-10-16] MEDS: Warfarin Sodium 5mg ORAL SCH (21:14)
[2017-10-17] VITALS: BP 137/85
[2017-10-17 04:00] VITALS: BP 120/82
[2017-10-17] MEDS ORDERED: Enoxaparin Sodium 300mg/3ml vial SUBQ SCH (06:00)
[2017-10-17] MEDS: dilTIAZem HCl 60mg tab ORAL SCH ×3 (06:22→18:00)
[2017-10-17] MEDS: Amiodarone 200mg tab ORAL SCH ×3 (06:23→21:31)
--- NOTE | 2017-10-17 07:57 | Critical Care Progress Note ---
Assessment/Plan Assessment/Plan atrial fibrillation with RVR pulmonary edema Asthma respiratory distress hypoxemia leg edema PLAN amiodarone po cardizem respiratory care IV steroids -dc oxygen taper impression, plan, and exam edited and reviewed in detail care discussed with sneller hand - Subjective Interval Events: care noted transferred out of ICU stable vital signs EKG Rhythm: Atrial Fibrillation I&O: Intake and Output 10/16/17 10/17/17 19:00 07:00 Intake Total 79.498 ml 60 ml Output Total 2050 ml 650 ml Balance -1970.502 ml -590 ml Intake Oral 0 ml 60 ml IV Total 79.498 ml Output Urine Total 2050 ml 650 ml # Voids 10 4 Critical Care - Objective Last 24 Hour Vital Signs Date Time Temp Pulse Resp B/P (MAP) Pulse Ox O2 Delivery O2 Flow Rate FiO2 10/17/17 06:22 97 120/82 10/17/17 04:00 97 10/17/17 04:00 97.9 95 22 120/82 96 Nasal Cannula 2.0 97.9 10/17/17 00:00 93 10/17/17 00:00 97.7 105 20 137/85 94 Nasal Cannula 2.0 97.7 10/16/17 23:51 105 137/85 10/16/17 22:00 102 20 /76 95 Nasal Cannula 2.0 10/16/17 21:30 102 20 152/76 95 Nasal Cannula 2.0 10/16/17 21:00 102 20 146/76 95 Nasal Cannula 2.0 10/16/17 20:00 100 10/16/17 20:00 98.0 101 20 150/70 95 Nasal Cannula 2.0 98.0 10/16/17 19:30 98 20 94 Nasal Cannula 2.0 28 10/16/17 19:30 Nasal Cannula 2.0 28 10/16/17 19:30 95 Nasal Cannula 2.0 28 10/16/17 19:30 104 20 96 Nasal Cannula 2.0 28 10/16/17 19:00 102 20 163/94 94 Nasal Cannula 2.0 10/16/17 18:00 109 22 147/73 94 Nasal Cannula 2.0 10/16/17 17:14 121 163/79 10/16/17 17:00 98.5 110 22 163/79 95 Nasal Cannula 2.0 98.5 2/25/18 16:00 101 10/16/17 16:00 109 22 170/94 94 Nasal Cannula 2.0 10/16/17 15:00 101 22 153/112 93 Nasal Cannula 2.0 10/16/17 14:00 107 23 144/76 94 Nasal Cannula 2.0 10/16/17 13:03 108 10/16/17 13:00 112 23 152/87 95 Nasal Cannula 2.0 10/16/17 13:00 110 142/83 10/16/17 12:30 112 22 142/83 95 Nasal Cannula 2.0 10/16/17 12:00 108 10/16/17 12:00 98.1 110 22 122/86 95 Nasal Cannula 2.0 98.1 10/16/17 11:30 115 22 120/77 95 Nasal Cannula 2.0 10/16/17 11:28 123 149/74 10/16/17 11:00 114 23 149/74 95 Nasal Cannula 2.0 10/16/17 10:30 110 23 140/86 94 Nasal Cannula 2.0 10/16/17 10:00 109 22 169/105 94 Nasal Cannula 2.0 10/16/17 09:30 101 22 149/109 95 Nasal Cannula 2.0 10/16/17 09:00 98 22 173/98 95 Nasal Cannula 2.0 10/16/17 08:30 95 21 133/80 94 Nasal Cannula 2.0 10/16/17 08:00 97.8 90 20 148/95 94 Nasal Cannula 2.0 97.8 10/16/17 08:00 90 10/16/17 07:59 Nasal Cannula 2.0 28 10/16/17 07:59 95 Nasal Cannula 2.0 28 10/16/17 07:59 80 20 95 Nasal Cannula 2.0 28 10/16/17 07:57 93 18 95 Nasal Cannula 2.0 28 Labs: Labs Test 10/14/17 17:00 10/14/17 21:10 10/14/17 23:25 10/15/17 04:25 White Blood Count 18.2 K/UL (4.8-10.8) 18.7 K/UL (4.8-10.8) 16.9 K/UL (4.8-10.8) Red Blood Count 5.39 M/UL (4.70-6.10) 5.57 M/UL (4.70-6.10) 5.40 M/UL (4.70-6.10) Hemoglobin 16.6 G/DL (14.2-18.0) 17.2 G/DL (14.2-18.0) 17.3 G/DL (14.2-18.0) Hematocrit 50.9 % (42.0-52.0) 52.2 % (42.0-52.0) 51.6 % (42.0-52.0) Mean Corpuscular Volume 94 FL (80-99) 94 FL (80-99) 95 FL (80-99) Mean Corpuscular Hemoglobin 30.8 PG (27.0-31.0) 30.9 PG (27.0-31.0) 32.0 PG (27.0-31.0) Mean Corpuscular Hemoglobin Concent 32.6 G/DL (32.0-36.0) 33.0 G/DL (32.0-36.0) 33.6 G/DL (32.0-36.0) Red Cell Distribution Width 14.5 % (11.6-14.8) 14.3 % (11.6-14.8) 14.9 % (11.6-14.8) Platelet Count 190 K/UL (150-450) 210 K/UL (150-450) 202 K/UL (150-450) Mean Platelet Volume 8.3 FL (6.5-10.1) 8.2 FL (6.5-10.1) 8.6 FL (6.5-10.1) Neutrophils (%) (Auto) % (45.0-75.0) % (45.0-75.0) % (45.0-75.0) Lymphocytes (%) (Auto) % (20.0-45.0) % (20.0-45.0) % (20.0-45.0) Monocytes (%) (Auto) % (1.0-10.0) % (1.0-10.0) % (1.0-10.0) Eosinophils (%) (Auto) % (0.0-3.0) % (0.0-3.0) % (0.0-3.0) Basophils (%) (Auto) % (0.0-2.0) % (0.0-2.0) % (0.0-2.0) Differential Total Cells Counted 100 100 100 Neutrophils % (Manual) 79 % (45-75) 76 % (45-75) 91 % (45-75) Lymphocytes % (Manual) 15 % (20-45) 14 % (20-45) 6 % (20-45) Monocytes % (Manual) 6 % (1-10) 5 % (1-10) 3 % (1-10) Eosinophils % (Manual) 0 % (0-3) 1 % (0-3) 0 % (0-3) Basophils % (Manual) 0 % (0-2) 0 % (0-2) 0 % (0-2) Band Neutrophils 0 % (0-8) 4 % (0-8) 0 % (0-8) Platelet Estimate Adequate Adequate Adequate Platelet Morphology Normal Normal Normal Red Blood Cell Morphology Normal Normal Sodium Level 140 MMOL/L (136-145) 138 MMOL/L (136-145) Potassium Level 3.4 MMOL/L (3.5-5.1) 3.8 MMOL/L (3.5-5.1) Chloride Level 100 MMOL/L (98-107) 98 MMOL/L (98-107) Carbon Dioxide Level 38 MMOL/L (21-32) 38 MMOL/L (21-32) Anion Gap 2 mmol/L (5-15) 2 mmol/L (5-15) Blood Urea Nitrogen 23 mg/dL (7-18) 23 mg/dL (7-18) Creatinine 1.0 MG/DL (0.55-1.30) 1.2 MG/DL (0.55-1.30) Estimat Glomerular Filtration Rate > 60 mL/min (>60) > 60 mL/min (>60) Glucose Level 79 MG/DL (74-106) 186 MG/DL (74-106) Calcium Level 8.3 MG/DL (8.5-10.1) 8.4 MG/DL (8.5-10.1) Troponin I 0.044 ng/mL (0.000-0.056) 0.049 ng/mL (0.000-0.056) 0.034 ng/mL (0.000-0.056) Pro-B-Type Natriuretic Peptide 2403 pg/mL (0-125) Prothrombin Time 11.5 SEC (9.30-11.50) 10.3 SEC (9.30-11.50) Prothromb Time International Ratio 1.1 (0.9-1.1) 1.0 (0.9-1.1) Activated Partial Thromboplast Time 27 SEC (23-33) 25 SEC (23-33) Anisocytosis 1+ Test 10/15/17 12:38 10/15/17 22:12 10/16/17 06:30 10/16/17 13:25 Prothrombin Time 11.7 SEC (9.30-11.50) Prothromb Time International Ratio 1.1 (0.9-1.1) Activated Partial Thromboplast Time > 150 SEC (23-33) > 150 SEC (23-33) > 150 SEC (23-33) 73 SEC (23-33) Troponin I 0.013 ng/mL (0.000-0.056) Pro-B-Type Natriuretic Peptide 1597 pg/mL (0-125) Test 10/16/17 18:50 Prothrombin Time 11.2 SEC (9.30-11.50) Prothromb Time International Ratio 1.1 (0.9-1.1) Objective: WDWN NAD crackles with moderate breath sounds S1S2 iRRR without MRG NABS nontender no HSM no CC edema improved no sob alert nonfocal REBA LOPEZ Oct 17, 2017 07:57
[2017-10-17] MEDS: DULoxetine 30mg cap ORAL SCH (08:33)
[2017-10-17 08:36] LABS: HEMATOCRIT 48.2 % (42.0-52.0); HEMOGLOBIN 15.8 G/DL (14.2-18.0); MEAN CORPUSCULAR VOLUME 97 FL (80-99); PLATELET COUNT 190 K/UL (150-450); RED BLOOD COUNT 4.99 M/UL (4.70-6.10); RED CELL DISTRIBUTION WIDTH 14.5 % (11.6-14.8)
--- NOTE | 2017-10-17 08:36 | General Progress Note ---
Assessment/Plan Problem List: (1) Atrial fibrillation with rapid ventricular response ICD Codes: I48.91 - Unspecified atrial fibrillation SNOMED: 777734841745221 (2) Troponin level elevated ICD Codes: R74.8 - Abnormal levels of other serum enzymes SNOMED: 098434518, 632228267, 564001375 (3) Dyspnea ICD Codes: R06.00 - Dyspnea, unspecified SNOMED: 728468988 Status: stable, progressing Assessment/Plan coumadin rate control tele monitoring iv lasix off steroids monitor labs Subjective ROS Limited/Unobtainable: No Constitutional: Reports: malaise, weakness HEENT: Reports: no symptoms Cardiovascular: Reports: irregular heart rate Respiratory: Reports: no symptoms Gastrointestinal/Abdominal: Reports: no symptoms Genitourinary: Reports: no symptoms Neurologic/Psychiatric: Reports: no symptoms Endocrine: Reports: no symptoms Hematologic/Lymphatic: Reports: no symptoms Allergies: Coded Allergies: No Known Allergies (Unverified , 01/13/16) All Systems: reviewed and negative except above Subjective no complaints. mild cough. off cardizem drip. HR mostly controlled. had short runs NSVT. Objective Last 24 Hour Vital Signs Date Time Temp Pulse Resp B/P (MAP) Pulse Ox O2 Delivery O2 Flow Rate FiO2 10/17/17 06:22 97 120/82 10/17/17 04:00 97 10/17/17 04:00 97.9 95 22 120/82 96 Nasal Cannula 2.0 97.9 10/17/17 00:00 93 10/17/17 00:00 97.7 105 20 137/85 94 Nasal Cannula 2.0 97.7 10/16/17 23:51 105 137/85 10/16/17 22:00 102 20 /76 95 Nasal Cannula 2.0 10/16/17 21:30 102 20 152/76 95 Nasal Cannula 2.0 10/16/17 21:00 102 20 146/76 95 Nasal Cannula 2.0 10/16/17 20:00 100 10/16/17 20:00 98.0 101 20 150/70 95 Nasal Cannula 2.0 98.0 10/16/17 19:30 98 20 94 Nasal Cannula 2.0 28 10/16/17 19:30 Nasal Cannula 2.0 28 10/16/17 19:30 95 Nasal Cannula 2.0 28 10/16/17 19:30 104 20 96 Nasal Cannula 2.0 28 10/16/17 19:00 102 20 163/94 94 Nasal Cannula 2.0 10/16/17 18:00 109 22 147/73 94 Nasal Cannula 2.0 10/16/17 17:14 121 163/79 10/16/17 17:00 98.5 110 22 163/79 95 Nasal Cannula 2.0 98.5 10/16/17 16:00 101 10/16/17 16:00 109 22 170/94 94 Nasal Cannula 2.0 10/16/17 15:00 101 22 153/112 93 Nasal Cannula 2.0 10/16/17 14:00 107 23 144/76 94 Nasal Cannula 2.0 10/16/17 13:03 108 10/16/17 13:00 112 23 152/87 95 Nasal Cannula 2.0 10/16/17 13:00 110 142/83 10/16/17 12:30 112 22 142/83 95 Nasal Cannula 2.0 10/16/17 12:00 108 10/16/17 12:00 98.1 110 22 122/86 95 Nasal Cannula 2.0 98.1 10/16/17 11:30 115 22 120/77 95 Nasal Cannula 2.0 10/16/17 11:28 123 149/74 10/16/17 11:00 114 23 149/74 95 Nasal Cannula 2.0 10/16/17 10:30 110 23 140/86 94 Nasal Cannula 2.0 10/16/17 10:00 109 22 169/105 94 Nasal Cannula 2.0 10/16/17 09:30 101 22 149/109 95 Nasal Cannula 2.0 10/16/17 09:00 98 22 173/98 95 Nasal Cannula 2.0 Intake and Output 10/16/17 10/17/17 19:00 07:00 Intake Total 79.498 ml 60 ml Output Total 2050 ml 650 ml Balance -1970.502 ml -590 ml Intake Oral 0 ml 60 ml IV Total 79.498 ml Output Urine Total 2050 ml 650 ml # Voids 10 4 Laboratory Tests 10/16/17 13:25: Activated Partial Thromboplast Time 73H 10/16/17 18:50: Prothrombin Time 11.2, Prothromb Time International Ratio 1.1 10/17/17 06:35: Prothrombin Time [Pending], Prothromb Time International Ratio [Pending], White Blood Count [Pending], Red Blood Count [Pending], Hemoglobin [Pending], Hematocrit [Pending], Mean Corpuscular Volume [Pending], Mean Corpuscular Hemoglobin [Pending], Mean Corpuscular Hemoglobin Concent [Pending], Red Cell Distribution Width [Pending], Platelet Count [Pending], Mean Platelet Volume [ Pending], Neutrophils (%) (Auto) [Pending], Lymphocytes (%) (Auto) [Pending], Monocytes (%) (Auto) [Pending], Eosinophils (%) (Auto) [Pending], Basophils (%) (Auto) [Pending] Height (Feet): 5 Height (Inches): 6.00 Weight (Pounds): 196 Objective General Appearance: WD/WN, alert Neck: supple Cardiovascular: irregularly irregular Respiratory/Chest: chest wall non-tender, lungs clear, normal breath sounds, no respiratory distress Edema: no edema noted Arm (L), no edema noted Arm (R), no edema noted Leg (L), no edema noted Leg (R), no edema noted Pedal (L), no edema noted Pedal (R), no edema noted Generalized TRAN ABEL Oct 17, 2017 08:36
[2017-10-17 08:41] LABS: INR 1.1 (0.9-1.1)
[2017-10-17] MEDS: Enoxaparin 100mg Inj SUBQ SCH ×2 (08:45→18:43)
[2017-10-17] MEDS: Advair 250/50 Inhaler - 14 dose INH SCH ×2 (09:00→18:36)
[2017-10-17] MEDS: Warfarin Sodium 5mg ORAL SCH (18:36)
[2017-10-17 20:00] VITALS: BP 123/83
[2017-10-18] VITALS (7 sets, daily range): BP systolic 131–144; BP diastolic 77–92
[2017-10-18] MEDS: dilTIAZem HCl 60mg tab ORAL SCH ×4 (00:24→17:18)
[2017-10-18] MEDS: Amiodarone 200mg tab ORAL SCH ×3 (05:48→22:17)
[2017-10-18] MEDS: Enoxaparin 100mg Inj SUBQ SCH (05:56)
--- NOTE | 2017-10-18 07:52 | Critical Care Progress Note ---
Assessment/Plan Assessment/Plan atrial fibrillation with RVR pulmonary edema Asthma respiratory distress hypoxemia leg edema leukocytosis PLAN amiodarone po tid cardizem ? long acting respiratory care IV steroids -off on coumadin ?Xarelto oxygen taper cards clearance impression, plan, and exam edited and reviewed in detail care discussed with set up operator tool - Subjective Interval Events: elevated wbc on coumadin EKG Rhythm: Atrial Fibrillation I&O: Intake and Output 10/17/17 10/18/17 19:00 07:00 Intake Total 472 ml Output Total 800 ml 750 ml Balance -328 ml -750 ml Intake Oral 472 ml Output Urine Total 800 ml 750 ml # Voids 3 Critical Care - Objective Last 24 Hour Vital Signs Date Time Temp Pulse Resp B/P (MAP) Pulse Ox O2 Delivery O2 Flow Rate FiO2 10/18/17 05:56 90 132/77 10/18/17 04:00 97.5 79 20 131/77 98 Nasal Cannula 2.0 97.5 10/18/17 04:00 81 10/18/17 00:24 93 140/79 10/18/17 00:00 97.4 86 20 132/80 97 Nasal Cannula 2.0 97.4 10/18/17 00:00 110 10/17/17 22:57 Nasal Cannula 10/17/17 22:55 Nasal Cannula 10/17/17 21:45 97.9 10/17/17 20:00 113 10/17/17 20:00 97.9 95 20 123/83 94 Nasal Cannula 2.0 97.9 10/17/17 19:05 Nasal Cannula 2.0 28 10/17/17 19:05 80 Nasal Cannula 2.0 28 10/17/17 18:00 72 10/17/17 16:00 69 10/17/17 14:47 110 138/86 10/17/17 12:00 75 10/17/17 09:25 Nasal Cannula 2.0 28 10/17/17 09:25 96 Nasal Cannula 2.0 28 10/17/17 09:25 Nasal Cannula 2.0 28 10/17/17 09:25 96 18 80 Nasal Cannula 2.0 28 10/17/17 08:00 69 Labs: Labs Test 10/15/17 12:38 10/15/17 22:12 10/16/17 06:30 10/16/17 13:25 Prothrombin Time 11.7 SEC (9.30-11.50) Prothromb Time International Ratio 1.1 (0.9-1.1) Activated Partial Thromboplast Time > 150 SEC (23-33) > 150 SEC (23-33) > 150 SEC (23-33) 73 SEC (23-33) Troponin I 0.013 ng/mL (0.000-0.056) Pro-B-Type Natriuretic Peptide 1597 pg/mL (0-125) Test 10/16/17 18:50 10/17/17 06:35 10/18/17 06:15 Prothrombin Time 11.2 SEC (9.30-11.50) 11.7 SEC (9.30-11.50) Prothromb Time International Ratio 1.1 (0.9-1.1) 1.1 (0.9-1.1) White Blood Count 23.0 K/UL (4.8-10.8) Red Blood Count 4.99 M/UL (4.70-6.10) Hemoglobin 15.8 G/DL (14.2-18.0) Hematocrit 48.2 % (42.0-52.0) Mean Corpuscular Volume 97 FL (80-99) Mean Corpuscular Hemoglobin 31.8 PG (27.0-31.0) Mean Corpuscular Hemoglobin Concent 32.8 G/DL (32.0-36.0) Red Cell Distribution Width 14.5 % (11.6-14.8) Platelet Count 190 K/UL (150-450) Mean Platelet Volume 9.1 FL (6.5-10.1) Neutrophils (%) (Auto) % (45.0-75.0) Lymphocytes (%) (Auto) % (20.0-45.0) Monocytes (%) (Auto) % (1.0-10.0) Eosinophils (%) (Auto) % (0.0-3.0) Basophils (%) (Auto) % (0.0-2.0) Differential Total Cells Counted 100 Neutrophils % (Manual) 94 % (45-75) Lymphocytes % (Manual) 3 % (20-45) Monocytes % (Manual) 3 % (1-10) Eosinophils % (Manual) 0 % (0-3) Basophils % (Manual) 0 % (0-2) Band Neutrophils 0 % (0-8) Platelet Estimate Adequate Platelet Morphology Normal Red Blood Cell Morphology Normal Objective: WDWN NAD crackles with moderate breath sounds S1S2 iRRR without MRG NABS nontender no HSM no CC edema improved no sob alert nonfocal REBA LOPEZ Oct 18, 2017 07:52
[2017-10-18 08:16] LABS: INR 2.2 (0.9-1.1)
[2017-10-18 08:31] LABS: BASOPHILS % (AUTO) 0.4 % (0.0-2.0); EOSINOPHILS % (AUTO) 0.1 % (0.0-3.0); HEMATOCRIT 48.9 % (42.0-52.0); HEMOGLOBIN 15.8 G/DL (14.2-18.0); LYMPHOCYTES % (AUTO) 12.7 % (20.0-45.0); MEAN CORPUSCULAR VOLUME 95 FL (80-99); MONOCYTES % (AUTO) 7.2 % (1.0-10.0); NEUTROPHILS % (AUTO) 79.7 % (45.0-75.0); PLATELET COUNT 187 K/UL (150-450); RED BLOOD COUNT 5.14 M/UL (4.70-6.10); RED CELL DISTRIBUTION WIDTH 14.6 % (11.6-14.8); WHITE BLOOD COUNT 13.8 K/UL (4.8-10.8)
--- NOTE | 2017-10-18 08:37 | General Progress Note ---
Assessment/Plan Problem List: (1) Atrial fibrillation with rapid ventricular response ICD Codes: I48.91 - Unspecified atrial fibrillation SNOMED: 805742165587239 (2) Troponin level elevated ICD Codes: R74.8 - Abnormal levels of other serum enzymes SNOMED: 624600792, 189983426, 919201349 (3) Dyspnea ICD Codes: R06.00 - Dyspnea, unspecified SNOMED: 270307046 Status: stable Assessment/Plan monitor wbc coumadin to goal inr 2-3 rate control tele monitoring off steroids monitor labs Subjective ROS Limited/Unobtainable: No Constitutional: Reports: malaise, weakness HEENT: Reports: no symptoms Cardiovascular: Reports: no symptoms Respiratory: Reports: no symptoms Gastrointestinal/Abdominal: Reports: no symptoms Genitourinary: Reports: no symptoms Neurologic/Psychiatric: Reports: no symptoms Endocrine: Reports: no symptoms Hematologic/Lymphatic: Reports: no symptoms Allergies: Coded Allergies: No Known Allergies (Unverified , 01/13/16) All Systems: reviewed and negative except above Subjective no complaints. rate controlled. on coumadin. elevated wbc noted. no fevers Objective Last 24 Hour Vital Signs Date Time Temp Pulse Resp B/P (MAP) Pulse Ox O2 Delivery O2 Flow Rate FiO2 10/18/17 05:56 90 132/77 10/18/17 04:00 97.5 79 20 131/77 98 Nasal Cannula 2.0 97.5 10/18/17 04:00 81 10/18/17 00:24 93 140/79 10/18/17 00:00 97.4 86 20 132/80 97 Nasal Cannula 2.0 97.4 10/18/17 00:00 110 10/17/17 22:57 Nasal Cannula 10/17/17 22:55 Nasal Cannula 10/17/17 21:45 97.9 10/17/17 20:00 113 10/17/17 20:00 97.9 95 20 123/83 94 Nasal Cannula 2.0 97.9 10/17/17 19:05 Nasal Cannula 2.0 28 10/17/17 19:05 80 Nasal Cannula 2.0 28 10/17/17 18:00 72 10/17/17 16:00 69 10/17/17 14:47 110 138/86 10/17/17 12:00 75 10/17/17 09:25 Nasal Cannula 2.0 28 10/17/17 09:25 96 Nasal Cannula 2.0 28 10/17/17 09:25 Nasal Cannula 2.0 28 10/17/17 09:25 96 18 80 Nasal Cannula 2.0 28 Intake and Output 10/17/17 10/18/17 19:00 07:00 Intake Total 472 ml Output Total 800 ml 750 ml Balance -328 ml -750 ml Intake Oral 472 ml Output Urine Total 800 ml 750 ml # Voids 3 Laboratory Tests 10/18/17 06:15: White Blood Count [Pending], Red Blood Count [Pending], Hemoglobin [Pending], Hematocrit [Pending], Mean Corpuscular Volume [Pending], Mean Corpuscular Hemoglobin [Pending], Mean Corpuscular Hemoglobin Concent [Pending], Red Cell Distribution Width [Pending], Platelet Count [Pending], Mean Platelet Volume [ Pending], Neutrophils (%) (Auto) [Pending], Lymphocytes (%) (Auto) [Pending], Monocytes (%) (Auto) [Pending], Eosinophils (%) (Auto) [Pending], Basophils (%) (Auto) [Pending], Prothrombin Time 23.7H, Prothromb Time International Ratio 2.2H Height (Feet): 5 Height (Inches): 6.00 Weight (Pounds): 192 Objective General Appearance: WD/WN, alert Neck: supple Cardiovascular: irregularly irregular Respiratory/Chest: chest wall non-tender, lungs clear, normal breath sounds, no respiratory distress Edema: no edema noted Arm (L), no edema noted Arm (R), no edema noted Leg (L), no edema noted Leg (R), no edema noted Pedal (L), no edema noted Pedal (R), no edema noted Generalized TRAN ABEL Oct 18, 2017 08:37
[2017-10-18] MEDS: Advair 250/50 Inhaler - 14 dose INH SCH ×2 (09:08→19:58)
[2017-10-18] MEDS: DULoxetine 30mg cap ORAL SCH (09:22)
[2017-10-18] MEDS ORDERED: Neosporin Oint Ud Pkt TOPIC ONE (10:15)
[2017-10-18] MEDS ORDERED: Neosporin Oint Ud Pkt TOPIC PRN (10:30)
[2017-10-18] MEDS: ceFAZolin sod 1 GM in NS 55 ML IVP SCH ×2 (11:21→22:17)
--- NOTE | 2017-10-18 13:46 | Physician Query ---
--------- THIS DOCUMENT IS A PERMANENT PART OF THE MEDICAL RECORD --------- PLEASE COMPLETE DOCUMENT BEFORE SIGNING Dear Date: Engine Installer/CDS Name: Engine Installer / CDS Phone # Exercise your independent professional judgment when responding to the query. Questions asked do not imply a particular answer is desired or expected. We greatly appreciate your clarification on this issue. CLINICAL DOCUMENTATION STATES: "Leukocytosis" documented in the progress notes of Dr. Devang Larson. CLINICAL FINDINGS SHOW: WBC= 18.2, 18.7, 16.9, 23.0, 13.8 TB====265/min, 102/min, 111/min, 118/min BP= 99/69, 75/41, 142/59 Please clarify if you mean: [] SIRS (Systemic Inflammatory Response Syndrome) [] SIRS w/ Organ Dysfunction [x] Sepsis [] Sepsis w/ Organ Dysfunction [] Septic Shock [] Not Applicable [] Other Condition Present on Admission: [] Yes [x] No []Clinically Undeterminable Please also document in your Progress Notes and/or Discharge Summary and indicate if the condition was present on admission. Devang Larson MD Date/Time [facility]
[2017-10-18] MEDS ORDERED: Warfarin Sodium 1mg ORAL ONE (17:00)
[2017-10-18] MEDS: Norco 5mg/325mg tab ORAL PRN (19:00)
--- NOTE | 2017-10-18 20:23 | Cardiology Progress Note ---
Assessment/Plan Assessment/Plan 1. Paroxysmal A.fib with RVR, start metoprolol 50mg po bid, continue digoxin, INR within the therapeutic level. 2. No ECG changes s/o ischemic, medical therapy at this point, decrease in EF is likely due to atrial fib. Subjective Subjective Atrial fibrillation with RVR at 120. Denies CP or SOB. Objective Last 24 Hour Vital Signs Date Time Temp Pulse Resp B/P (MAP) Pulse Ox O2 Delivery O2 Flow Rate FiO2 10/18/17 20:00 Nasal Cannula 2.0 28 10/18/17 20:00 95 Nasal Cannula 2.0 28 10/18/17 19:59 68 20 96 Nasal Cannula 2.0 28 10/18/17 19:58 57 20 95 Nasal Cannula 2.0 28 10/18/17 17:48 97.5 115 20 144/90 100 Nasal Cannula 2.0 97.5 10/18/17 17:18 110 143/92 10/18/17 16:00 97.5 115 20 144/90 100 Nasal Cannula 2.0 97.5 10/18/17 16:00 112 10/18/17 12:00 97.3 85 20 143/92 94 Nasal Cannula 2.0 97.3 10/18/17 12:00 110 10/18/17 11:26 79 135/85 10/18/17 09:08 79 18 97 Nasal Cannula 2.0 28 10/18/17 09:08 79 16 97 Nasal Cannula 2.0 28 10/18/17 08:00 81 10/18/17 08:00 97.3 93 20 135/85 99 Nasal Cannula 2.0 97.3 10/18/17 07:29 97 Nasal Cannula 2.0 28 10/18/17 07:29 Nasal Cannula 2.0 28 10/18/17 05:56 90 132/77 10/18/17 04:00 97.5 79 20 131/77 98 Nasal Cannula 2.0 97.5 10/18/17 04:00 81 10/18/17 00:24 93 140/79 10/18/17 00:00 97.4 86 20 132/80 97 Nasal Cannula 2.0 97.4 10/18/17 00:00 110 10/17/17 22:57 Nasal Cannula 10/17/17 22:55 Nasal Cannula 10/17/17 21:45 97.9 Intake and Output 10/17/17 10/18/17 19:00 07:00 Intake Total 472 ml Output Total 800 ml 750 ml Balance -328 ml -750 ml Intake Oral 472 ml Output Urine Total 800 ml 750 ml # Voids 3 2D Echo: EF ~40% due to AFib, RVSP 20 mmHg, Nl intra-cardiac filling press., WANDER 1.7 Laboratory Tests Test 10/18/17 06:15 White Blood Count 13.8 K/UL (4.8-10.8) H Red Blood Count 5.14 M/UL (4.70-6.10) Hemoglobin 15.8 G/DL (14.2-18.0) Hematocrit 48.9 % (42.0-52.0) Mean Corpuscular Volume 95 FL (80-99) Mean Corpuscular Hemoglobin 30.7 PG (27.0-31.0) Mean Corpuscular Hemoglobin Concent 32.3 G/DL (32.0-36.0) Red Cell Distribution Width 14.6 % (11.6-14.8) Platelet Count 187 K/UL (150-450) Mean Platelet Volume 8.5 FL (6.5-10.1) Neutrophils (%) (Auto) 79.7 % (45.0-75.0) H Lymphocytes (%) (Auto) 12.7 % (20.0-45.0) L Monocytes (%) (Auto) 7.2 % (1.0-10.0) Eosinophils (%) (Auto) 0.1 % (0.0-3.0) Basophils (%) (Auto) 0.4 % (0.0-2.0) Prothrombin Time 23.7 SEC (9.30-11.50) H Prothromb Time International Ratio 2.2 (0.9-1.1) H Objective HEENT: Normocephalic and atraumatic. Pupils are equal, round, and reactive to light. Sclerae anicteric. Oral mucosa are moist. NECK: Supple. There is no jugular venous distention. LUNGS: Decreased breath sounds bilaterally. No rales or wheezes. HEART: Tachycardic. Irregular irregular. S1 and S2 with distant heart sounds. No murmurs or S3. ABDOMEN: Soft, nontender. No palpable mass. EXTREMITIES: A 1+ pedal and ankle edema bilaterally. SKIN: No rashes or lesions. NEUROLOGIC: No gross focal motor deficits. AMANUEL AGUILAR Oct 18, 2017 20:23
[2017-10-18] MEDS ORDERED: Metoprolol Tartrate 50mg tab ORAL SCH (21:00)
[2017-10-19] VITALS: BP 95/60
[2017-10-19 02:00] VITALS: BP 85/62
[2017-10-19 02:45] VITALS: BP 110/63
[2017-10-19] MEDS: Norco 5mg/325mg tab ORAL PRN (02:46)
[2017-10-19 04:00] VITALS: BP 95/61
[2017-10-19] MEDS: ceFAZolin sod 1 GM in NS 55 ML IVP SCH (06:00)
[2017-10-19] MEDS: dilTIAZem HCl 60mg tab ORAL SCH ×2 (06:00)
[2017-10-19] MEDS: Amiodarone 200mg tab ORAL SCH (06:00)
--- NOTE | 2017-10-19 06:09 | Emergency Room Report ---
History of Present Illness General Source: Family Member, Medical Record Present Illness HPI This is a 67-year-old male who was admitted to the hospital for rapid her fibrillation with RVR. He was initially made it to the ICU and recently transferred to telemetry. He was doing well until tonight. He started complaining of shortness of breath and when respiratory therapist check up on him for breathing treatment, he became unresponsive. A CODE BLUE was called. I responded to the code on my arrival patient is getting CPR and arty receive 1 mg of epinephrine. There was good pulse with CPR but no pulse without CPR. On the monitor he was in asystole. I proceeded to intubate the patient and he received 2 more rounds of epinephrine. He never regained spontaneous pulse. On the monitor he was initially in asystole pattern and then PEA pattern. I called the code and pronounced the patient at 5:[address] Larson regarding the outcome. Allergies: Coded Allergies: No Known Allergies (Unverified , 01/13/16) Patient History Past Medical History: see triage record, old chart reviewed Past Surgical History: other Pertinent Family History: none Social History: Denies: smoking Immunizations: other Reviewed Nursing Documentation: PMH: Agreed, PSxH: Agreed Nursing Documentation-PMH Hx Cardiac Problems: Yes Hx Hypertension: Yes Hx Pacemaker: No Hx Asthma: Yes Hx Diabetes: No Hx Cancer: No Hx Gastrointestinal Problems: No Hx Dialysis: No Hx Neurological Problems: No Hx Seizures: No Physical Exam Vital Signs Date Time Temp Pulse Resp B/P (MAP) Pulse Ox O2 Delivery O2 Flow Rate FiO2 10/14/17 16:00 97.8 120 18 125/85 93 Nasal Cannula 2.0 97.8 10/15/17 08:59 28 Procedures CPR/Code Blue CPR/Code Blue Narrative please see the code sheet list of medications and time given. Intubation Intubation : Consent: Emergent Intubation Method: orotracheal Tube Size (cm): 7.5 Breath Sounds after Intubation: equal Intubation Complications: no complications Post Intubation Xray: No Attempts: One Patient Tolerated: Well Complications: None Medical Decision Making Diagnostic Impression: Primary Impression: Cardiac arrest ER Course Patient presents with cardiac arrest. He had a recent NE and it fibrillation with RVR. He is currently anticoagulated. He may have had intracranial bleed. He could also have cardiac arrest, tamponade, dissection, massive NE to name a few. Code was unsuccessful patient was pronounced at 5:39 AM. Last Vital Signs Date Time Temp Pulse Resp B/P (MAP) Pulse Ox O2 Delivery O2 Flow Rate FiO2 10/19/17 04:00 Nasal Cannula 2.0 10/19/17 04:00 84 10/19/17 04:00 97.9 21 95/61 95 97.9 10/18/17 20:00 28 Status: unchanged Disposition: Condition: Referrals: REBA LARSON (PCP) RICHARD FLOWER M.D. Oct 19, 2017 06:09
--- NOTE | 2017-10-19 13:04 | Diagnostic Imaging Report ---
APPROVED REPORT CPT Code: 36416 Present Symptoms Comments: PAIN R/O DVT BILATERAL: Imaging reveals a patent deep venous system bilaterally. There is no evidence of thrombus within the femoral, popliteal or tibial segments. The greater saphenous veins are also within normal limits. Doppler indicates normal spontaneous flow within these segments.
--- NOTE | 2017-10-20 17:02 | Discharge Summary ---
Discharge Summary Hospital Course Date of Admission Oct 14, 2017 at 14:30 Date of Discharge Oct 19, 2017 at 07:10 Admitting Diagnosis HPI Blair Neves is a 67 year old male who was admitted on Oct 14, 2017 at 14: 30 for Arterial Flutter With Av Block Hospital Course [id number] Discharge Discharge Disposition Patient was discharged to Discharge Diagnoses: Radha Mohamud NP Oct 20, 2017 17:02
--- NOTE | 2017-10-21 15:00 | Discharge Summary 2 SIG ---
DATE OF ADMISSION: 10/14/2017 DATE OF DISCHARGE: 10/19/2017 BRIEF SUMMARY BRIEF HOSPITAL SUMMARY: The patient is a 67-year-old male with history of hypercholesterolemia, hypertension, osteoarthritis, asthma, and obstructive sleep apnea, initially presented to Dr. Larson's office and was noted to be in atrial fibrillation with RVR. He was immediately transferred to the hospital and was admitted to ICU for rapid atrial fibrillation. He was given diltiazem and amiodarone. He had increasing shortness of breath and peripheral edema. He was started on intravenous anticoagulation with heparin for stroke prevention. Venous duplex of lower extremity was negative for DVT. Echocardiogram showed EF 50%. He was given diuresis with Lasix 40 mg b.i.d. as he appeared to be in [id number] CHF on exam. Troponin was mildly elevated. However, EKG did not show definitive ischemic changes. He was started on Coumadin and was tapered off IV steroids. He was saturating well on nasal cannula. He was eventually transferred out of ICU and was transferred to telemetry. On the morning of October 19, the patient complained of shortness of breath. He suddenly became unresponsive and Code Blue was called. Resuscitative efforts failed and the patient eventually . FINAL DIAGNOSES: 1. Leukocytosis, possible sepsis. 2. Atrial fibrillation with rapid ventricular response. 3. Elevated troponin. 4. Pulmonary edema. 5. Asthma. 6. Respiratory failure with hypoxemia. 7. Leg edema. 8. Acute on chronic diastolic heart failure. Devang Larson M.D. I have been assigned to dictate discharge summary on this account and I was not involved in the patient's management. Radha Mohamud N.P. DR: RENE JOB#: [id number] CC: KIRBY
== END 2017-10-19 07:10 | disposition expired | DRG 308 ==
LOC: 2E 14:30 → ICU 18:28 → 2E 10-16 22:14
PROC: 0BH17EZ Insertion of Endotracheal Airway into Trachea, Via Natural or Artificial Opening (ICD-10-PCS; principal; 2017-10-19)
PROC: 5A12012 Performance of Cardiac Output, Single, Manual (ICD-10-PCS; principal; 2017-10-19)
DX: I48.0 Paroxysmal atrial fibrillation (principal); A41.9 Sepsis, unspecified organism; I42.9 Cardiomyopathy, unspecified; I50.9 Heart failure, unspecified; R06.03 Acute respiratory distress; R09.02 Hypoxemia; G47.33 Obstructive sleep apnea (adult) (pediatric); E78.5 Hyperlipidemia, unspecified; I10 Essential (primary) hypertension; Z96.651 Presence of right artificial knee joint; F17.200 Nicotine dependence, unspecified, uncomplicated; R60.9 Edema, unspecified; Z86.718 Personal history of other venous thrombosis and embolism; M19.90 Unspecified osteoarthritis, unspecified site; R74.8 Abnormal levels of other serum enzymes; J45.909 Unspecified asthma, uncomplicated
CPT/HCPCS: 36415; 71045; 80048; 82962; 83880; 84484; 85007; 85025; 85610; 85730; 87081; 93005; 93306; 93970; 94640; 94760